=== PATIENT | female | born 1985 ===

== ENCOUNTER 2020-03-27 16:37 | Emergency (ER) | payer SELFPAY ==
--- NOTE | 2020-03-27 17:25 | ER Document Report ---
ED Medical Screen (RME) - General Stated Complaint: SHORTNESS OF BREATH,COUGH Time Seen by Provider: 03/27/20 17:19 Notes: Patient is a 34-year-old female presents emergency department with a chief complaint of a cough. She has had a cough for the past 2 weeks. Denies any fever. Exam: Cough noted. I have greeted and performed a rapid initial assessment of this patient. A comprehensive ED assessment and evaluation of the patient, analysis of test results and completion of medical decision making process will be conducted by an additional ED providers. Physical Exam - Vital signs Vitals: Temp Pulse Resp BP Pulse Ox 98.1 F 104 H 24 H 127/76 H 97 03/27/20 16:41 03/27/20 16:41 03/27/20 16:41 03/27/20 16:41 03/27/20 16:41 Course - Vital Signs Vital signs: Temp Pulse Resp BP Pulse Ox 98.1 F 104 H 24 H 127/76 H 97 03/27/20 16:41 03/27/20 16:41 03/27/20 16:41 03/27/20 16:41 03/27/20 16:41
--- NOTE | 2020-03-27 17:51 | RADIOLOGY REPORT (SQ) ---
EXAM DESCRIPTION: CHEST SINGLE VIEW IMAGES COMPLETED DATE/TIME: 03/27/2020 5:40 pm REASON FOR STUDY: cough x2 weeks COMPARISON: None. EXAM PARAMETERS: NUMBER OF VIEWS: One view. TECHNIQUE: Single frontal radiographic view of the chest acquired. RADIATION DOSE: NA LIMITATIONS: None. FINDINGS: LUNGS AND PLEURA: No opacities, masses or pneumothorax. No pleural effusion. MEDIASTINUM AND HILAR STRUCTURES: No masses. Contour normal. HEART AND VASCULAR STRUCTURES: Heart normal in size. Normal vasculature. BONES: No acute findings. HARDWARE: None in the chest. OTHER: No other significant finding. IMPRESSION: NO ACUTE RADIOGRAPHIC FINDING IN THE CHEST. TECHNICAL DOCUMENTATION: JOB ID: [id number] [employer]- All Rights Reserved Reading location - IP/workstation name: [email or web address]
[2020-03-27 18:41] LABS: ABSOLUTE BASOPHILS # (AUTO) 0.1 10^3/uL (0.0-0.2); ABSOLUTE EOSINOPHILS # (AUTO) 0.2 10^3/uL (0.0-0.6); ABSOLUTE LYMPHOCYTES (AUTO) 3.1 10^3/uL (0.5-4.7); ABSOLUTE MONOCYTES (AUTO) 0.7 10^3/uL (0.1-1.4); BASOPHILS % (AUTO) 0.6 % (0-2); EOSINOPHILS % (AUTO) 1.4 % (0-6); HEMATOCRIT 37.3 % (36.0-47.0); HEMOGLOBIN 12.4 g/dL (12.0-15.5); LYMPHOCYTES % (AUTO) 20.4 % (13-45); MEAN CORPUSCULAR HEMOGLOBIN 27.2 pg (27.0-33.4); MEAN CORPUSCULAR HGB CONC 33.1 g/dL (32.0-36.0); MEAN CORPUSCULAR VOLUME 82 fl (80-97); MONOCYTES % (AUTO) 4.5 % (3-13); PLATELET COUNT 350 10^3/uL (150-450); RED BLOOD COUNT 4.54 10^6/uL (3.72-5.28); RED CELL DISTRIBUTION WIDTH 13.6 % (11.5-14.0); SEGMENTED NEUTROPHILS % (AUTO) 73.1 % (42-78); TOTAL CELLS COUNTED % (AUTO) 100 %; WHITE BLOOD COUNT 15.1 10^3/uL (4.0-10.5)
[2020-03-27 18:59] LABS: ALBUMIN 4.2 g/dL (3.5-5.0); ALKALINE PHOSPHATASE 72 U/L (38-126); ANION GAP 10 (5-19); ASPARTATE AMINO TRANSFERASE 20 U/L (14-36); BILIRUBIN,DIRECT 0.1 mg/dL (0.0-0.4); BILIRUBIN,TOTAL 0.2 mg/dL (0.2-1.3); BLOOD UREA NITROGEN 15 mg/dL (7-20); CALCIUM 9.4 mg/dL (8.4-10.2); CARBON DIOXIDE 22 mmol/L (22-30); CHLORIDE 107 mmol/L (98-107); GLUCOSE 108 mg/dL (75-110); POTASSIUM 4.5 mmol/L (3.6-5.0); TOTAL PROTEIN 7.3 g/dL (6.3-8.2)
[2020-03-27 19:07] LABS: A TYPE INFLUENZA AG NEGATIVE (NEGATIVE); B INFLUENZA AG NEGATIVE (NEGATIVE)
--- NOTE | 2020-03-27 19:56 | ER Document Report ---
ED General - General Chief Complaint: Shortness Of Breath Stated Complaint: SHORTNESS OF BREATH,COUGH Time Seen by Provider: 03/27/20 17:19 Primary Care Provider: NATALEE MCCLAIN MD [ACTIVE STAFF] - Follow up as needed Mode of Arrival: Ambulatory Information source: Patient Notes: Patient is a 34-year-old female comes emergency room complaining of increasing shortness of breath with a cough. Patient's primary concern is about her cough. She has a history of having pertussis x2 in her more double years. She has been vaccinated several times but she ends up getting pertussis and it has been diagnosed through laboratory values in the past. She states that she feels as where time she gets it. Patient states that she gets into coughing fits so bad that she almost vomits. She also states she has had some blood-tinged sputum occasionally with her hard coughing. She does admit to smoking. She also admits to having some cough and congestion with a runny nose at the start of this. Stated patient does have a history of smoking and oral control. TRAVEL OUTSIDE OF THE [place] IN LAST 30 DAYS: No - HPI Onset: Other - 2 weeks Onset/Duration: Gradual, Persistent, Worse Severity: Moderate Pain Level: 3 Associated symptoms: Nonproductive cough, Shortness of breath Exacerbated by: Denies Relieved by: Denies Similar symptoms previously: Yes Recently seen / treated by doctor: No - Related Data Allergies/Adverse Reactions: azithromycin Allergy (Verified 03/27/20 18:36) Home Medications: control Past Medical History - General Information source: Patient - Social History Smoking Status: Current Every Day Smoker Cigarette use (# per day): Yes - Half pack a day Chew tobacco use (# tins/day): No Smoking Education Provided: Yes Frequency of alcohol use: None Drug Abuse: None Lives with: Family Family History: Reviewed & Not Pertinent Patient has homicidal ideation: No Pulmonary Medical History: Reports: Hx Asthma - allergy induced GI Medical History: Reports: Hx Hiatal Hernia Past Surgical History: Reports: Hx Abdominal Surgery - hernia repair Review of Systems - Review of Systems Constitutional: Fever EENT: Nose congestion Cardiovascular: No symptoms reported Respiratory: See HPI, Cough, Short of breath Gastrointestinal: No symptoms reported Genitourinary: No symptoms reported Female Genitourinary: No symptoms reported Musculoskeletal: No symptoms reported Skin: No symptoms reported Hematologic/Lymphatic: No symptoms reported Neurological/Psychological: No symptoms reported -: Yes All other systems reviewed and negative Physical Exam - Vital signs Vitals: Temp Pulse Resp BP Pulse Ox 98.1 F 104 H 24 H 127/76 H 97 03/27/20 16:41 03/27/20 16:41 03/27/20 16:41 03/27/20 16:41 03/27/20 16:41 Interpretation: Tachycardic Notes: PHYSICAL EXAMINATION: GENERAL: Patient is a well-nourished well-developed 34-year-old female no appare nt distress on examination but does appear somewhat uncomfortable. HEAD: Atraumatic, normocephalic. EYES: Pupils equal round and reactive to light, extraocular movements intact, conjunctiva are normal. ENT: Examination patient had an upper airway showed nasal mucosa be mildly erythematous edematous with some rhinorrhea noted. There is some mild maxillary sinus tenderness to palpation but no frontal. Bilateral TMs appear normal with no bulging or retraction. Posterior pharynx does show moderate amount of drainage with some yellowish-green color to it. Uvula is midline with no encroachment and airways patent. NECK: Normal range of motion, supple without lymphadenopathy LUNGS: Auscultation patient's lungs show bilateral breath sounds are decreased throughout no rhonchi rales or wheeze are heard. HEART: Tachycardic rate and rhythm without murmurs Musculoskeletal: Normal range of motion, no pitting or edema. No cyanosis. NEUROLOGICAL:t. Normal speech, normal gait. Normal sensory, motor exams PSYCH: Normal mood, normal affect. SKIN: Warm, Dry, normal turgor, no rashes or lesions noted. - Notes Notes: PHYSICAL EXAMINATION: GENERAL: Well-appearing, well-nourished and in no acute distress. HEAD: Atraumatic, normocephalic. EYES: Pupils equal round and reactive to light, extraocular movements intact, conjunctiva are normal. ENT: Examination head and upper airway show nasal mucosa be mildly erythematous and edematous with rhinorrhea yellowish-green in color. No frontal or maxillary sinus tenderness to palpation. Bilateral TMs appear normal no retraction or bulging. Posterior pharynx shows mild erythema throughout uvula is midline with erythema no exudates are noted. Airway is patent. NECK: Normal range of motion, supple without lymphadenopathy LUNGS: Breath sounds clear to auscultation bilaterally and equal. No wheezes rales or rhonchi. HEART: Tachycardic rate and rhythm without murmurs Musculoskeletal: Normal range of motion, no pitting or edema. No cyanosis. NEUROLOGICAL: Normal speech, normal gait. Normal sensory, motor exams PSYCH: Normal mood, normal affect. SKIN: Warm, Dry, normal turgor, no rashes or lesions noted. Course - Re-evaluation Re-evalutation: 03/27/20 19:54 Patient has a history of diagnosis of pertussis/whooping cough over the past several years that have been diagnosed by lab values according to patient. She has also been vaccinated multiple times for it. She states no one is sure why she gets this all the time. Patient does smoke and she has had a steady cough for little over 2 weeks. So at this time the patient tell me that she has had a history of it and her white count is 15,000 x-rays negative and she has been hacking and coughing here ongoing going to place her on some Bactrim DS for 14 days. Patient has allergy to Zithromax and when I was discussing with patient she had informed me that it is also possible that she has a urinary tract infection because she usually has no symptoms with it and that was the only other thing that was not checked from the orders put in upfront. And I did not put the order in because she had no complaints. Patient was also tested for Covid and the flu which were all negative. - Vital Signs Vital signs: Temp Pulse Resp BP Pulse Ox 98.9 F 100 18 130/83 H 98 03/27/20 20:09 03/27/20 20:09 03/27/20 20:09 03/27/20 20:09 03/27/20 20:09 - Laboratory Result Diagrams: 03/27/20 18:18 03/27/20 18:18 Laboratory results interpreted by me: 03/27/20 18:18 WBC 15.1 H Absolute Neuts (auto) 11.0 H Discharge - Discharge Clinical Impression: Whooping cough Condition: Stable Disposition: HOME, SELF-CARE Instructions: COVID-19 Guidance for Persons Under Investigation, Acetaminophen, Upper Respiratory Illness ([facility]) Additional Instructions: As we discussed your white count is up to 15,000 which shows that some type of a reaction. It could be the coronavirus but with that test will be back for about 3 days. But since you give me a history and exam you suspect you have a repeat of your whooping cough we will go ahead and treat you for that. Also since you tell me that it is possible that you could have a urinary tract infection we did get your urine but unfortunately stated you could not stay for the results the antibiotic will cover that. I will contact you if it is positive by phone when results come back. Meantime you should self quarantine to make sure that this is not coronavirus take antibiotics to help alleviate the pain cough/pertussis Tylenol alternate with Motrin for any aches pains and fevers. And most imp ortant of all if you should have any increasing shortness of breath or discomfort return to ER for reevaluation. Prescriptions: Sulfamethoxazole/Trimethoprim [Bactrim Ds Tablet] 1 each PO BID #[id number] tablet Referrals: NATALEE MCCLAIN MD [ACTIVE STAFF] - Follow up as needed
[2020-03-27 20:13] VITALS: BP 130/83
[2020-03-27 20:36] LABS: APPEARANCE,URINE CLEAR; BILIRUBIN,URINE NEGATIVE (NEGATIVE); COLOR,URINE YELLOW; GLUCOSE, URINE NEGATIVE (NEGATIVE); KETONES,URINE NEGATIVE (NEGATIVE); LEUKOCYTE ESTERASE,URINE NEGATIVE (NEGATIVE); NITRITE,URINE NEGATIVE (NEGATIVE); PROTEIN,URINE NEGATIVE (NEGATIVE); URINE SPECIFIC GRAVITY 1.028; UROBILINOGEN,URINE NEGATIVE mg/dL (<2.0)
== END 2020-03-27 20:13 | disposition home or self-care (01) ==
LOC: ER 16:37
DX: A37.90 Whooping cough, unspecified species without pneumonia (principal); J45.909 Unspecified asthma, uncomplicated; R00.0 Tachycardia, unspecified; J34.89 Other specified disorders of nose and nasal sinuses; F17.210 Nicotine dependence, cigarettes, uncomplicated; Z79.3 Long term (current) use of hormonal contraceptives; Z88.1 Allergy status to other antibiotic agents; Z20.828 Contact with and (suspected) exposure to other viral communicable diseases
CPT/HCPCS: 99284; 36415; 87070; 87880; 85025; 87635; 80053; 81001; 87804; 71045; C9803